=== PATIENT | female | born 1990 | race African-American/Black ===

== ENCOUNTER 2021-10-28 17:24 | Emergency (ER) | payer OTHER ==
[~2021-10-28] VITALS: Ht 170.2 cm; Wt 70.3 kg
[2021-10-28] MEDS ORDERED: ONDANSETRON 4 MG/2 ML VIAL IV ONE (17:30)
[2021-10-28] MEDS ORDERED: levETIRAcetam IV 500 MG in IV DEXTROSE 5% 100 ML IV ONE (17:30)
[2021-10-28] MEDS ORDERED: LORAZEPAM 2 MG/1 ML VIAL ONE (17:32)
[2021-10-28] MEDS ORDERED: levETIRAcetam 500 MG/5 ML VIAL IV ONE (17:36)
[2021-10-28] MEDS ORDERED: ONDANSETRON 4 MG/2 ML VIAL ONE (17:36)
[2021-10-28] MEDS ORDERED: LORAZEPAM 2 MG/1 ML VIAL IV ONE (17:45)
--- NOTE | 2021-10-28 17:45 | NUR ---
Patient brought in by RA sustained seizure x 30 seconds. Patient came from a motel. Also complaining of severe abdominal pain 10/15. Patient with grandmal seizure lasting 30 seconds upon arrival. Seizure precaution observed.
[2021-10-28] MEDS ORDERED: LEVE500T9 PO ×2 (17:48→22:36)
[2021-10-28 18:07] LABS: HEMATOCRIT 39.5 % (31.2-41.9); MEAN CORPUSCULAR HEMOGLOBIN 21.4 uug (24.7-32.8); MEAN CORPUSCULAR VOLUME 69.1 fL (75.5-95.3); PLATELET COUNT (AUTO) 392 K/uL (179-408)
[2021-10-28 18:09] LABS: CREATININE 0.9 mg/dL (0.6-1.3); POTASSIUM 3.6 mmol/L (3.5-5.1)
--- NOTE | 2021-10-28 18:18 | NUR ---
No furher seizure noted at this time. Continue to monitor.
[2021-10-28 18:54] LABS: LYMPHOCYTES % (MANUAL) 7 % (20-40); MONOCYTES % (MANUAL) 2 % (2-10); NEUTROPHILS % (MANUAL) 91 % (42-75)
[2021-10-28] MEDS ORDERED: HYDROMORPHONE 1 MG/1 ML DISP.SYRIN IV ONE (20:00)
[2021-10-28] MEDS ORDERED: PIPERACILLIN SODIUM/TAZOBACTAM 3.375 G in IV DEXTROSE 5% 50 ML IV ONE (20:00)
[2021-10-28] MEDS ORDERED: HYDROMORPHONE 1 MG/1 ML DISP.SYRIN ONE (20:03)
[2021-10-28] MEDS ORDERED: PIPERACILLIN/TAZOBACTAM/D5W 50 ML IV ONE (20:03)
[2021-10-28 20:20] LABS: ALANINE AMINOTRANSFERASE 15 U/L (14-59); ALKALINE PHOSPHATASE 69 U/L (50-136); ASPARTATE AMINOTRANSFERASE < 5 U/L (15-37); BILIRUBIN,DIRECT 0.2 mg/dL (0.0-0.2); LIPASE 34 U/L (73-393)
--- NOTE | 2021-10-28 23:39 | NUR ---
Assisted Dr Reyes with pelvic exam at bedside. Patient tolerated the procedure well. Denies discomfort. Provided privacy throughout the test.
--- NOTE | 2021-10-29 01:09 | NUR ---
Patient given written and verbal discharge instructions. Patient verbalizes understanding of instructions. Patient is ambulatory with steady gait. Refuses offer of prison placement. Patient given list of available shelters in surrounding area. Pt provided with taxi voucher, clothing, no acute signs of distress, VSS, all belongings taken, IV site discontinued.
[2021-10-29 01:12] VITALS: BP 130/70
== END 2021-10-29 01:13 | disposition home or self-care (01) ==
LOC: ER 17:46
DX: G40.909 Epilepsy, unspecified, not intractable, without status epilepticus (principal); F41.1 Generalized anxiety disorder; T42.6X6A Underdosing of other antiepileptic and sedative-hypnotic drugs, initial encounter; Y92.89 Other specified places as the place of occurrence of the external cause; R10.9 Unspecified abdominal pain; R93.49 Abnormal radiologic findings on diagnostic imaging of other urinary organs; R03.0 Elevated blood-pressure reading, without diagnosis of hypertension
CPT/HCPCS: 99285; 74176; 96365; 96375; 76856; 80076; 80048; 83690; 85025; 84702; 36415; 85007; J1953; J2060; J2405; J2543; J1170; 70030-TC; A4663